=== PATIENT | female | born 1990 | race African-American/Black ===

== ENCOUNTER 2023-08-07 13:23 | Emergency (ER) | payer MEDICAID ==
[~2023-08-07] VITALS: Ht 177.8 cm; Wt 80.0 kg
[2023-08-07 13:34] VITALS: O2SAT 100
[2023-08-07] MEDS: FLUORESCEIN SODIUM 1MG/STRIP BOTHEYE ONE (14:30)
[2023-08-07] MEDS ORDERED: OFLO5DRO LEFTEYE (16:09)
[2023-08-07] MEDS ORDERED: IBUP-2030 MT (16:09)
[2023-08-07] MEDS ORDERED: AMOX1TAB16 MT (16:09)
[2023-08-07 16:32] VITALS: BP 128/77; PULSE 76; RESP 16; TEMP 98.7
== END 2023-08-07 16:37 | disposition home or self-care (01) ==
LOC: ER 13:23
DX: L03.213 Periorbital cellulitis (principal)
CPT/HCPCS: 99283

== ENCOUNTER 2023-08-14 09:51 | Emergency (ER) | payer MEDICAID ==
[~2023-08-14] VITALS: Ht 175.3 cm; Wt 82.0 kg
[~2023-08-14 09:51] MED LIST: AMOX1TAB16 MT; IBUP-2030 MT; OFLO5DRO LEFTEYE
[2023-08-14 10:17] VITALS: BP 128/77; PULSE 89; RESP 18; TEMP 98.2; O2SAT 100
== END 2023-08-14 11:37 | disposition home or self-care (01) ==
LOC: ER 10:33
DX: H00.14 Chalazion left upper eyelid (principal)
CPT/HCPCS: 99282